=== PATIENT | female | born 1980 | race Caucasian/White ===

== ENCOUNTER 2018-12-16 20:46 | Emergency (ER) | payer OTHER ==
[2018-12-16 21:17] VITALS: BP 148/93
[2018-12-16] MEDS ORDERED: Cephalexin CAP* 500 MG PO ONE (22:01)
--- NOTE | 2018-12-16 22:11 | UC ---
Skin Complaint HPI - HPI Summary HPI Summary: Patient is a 38yo female presenting with redness and complaint of possible skin infection of left forearm following what she believes to be an insect bite two days ago. She did not see an insect but reports feeling a sudden intense stinging on her forearm. She was seen at [facility] where they told her to keep an eye on it. Over the past few days it has continued to burn and itch. There was initially no redness but this morning she noticed some erythema that has slowly spread throughout the day. [place] told her to come here for possible cellulitis. She has not taken anything for her symptoms. She denies any allergies to medications or insects. She denies any associated pain. Denies any discharge from the site. - History of Current Complaint Chief Complaint: UCSkin Time Seen by Provider: 12/16/18 21:51 Stated Complaint: INSECT BITE Hx Obtained From: Patient Hx Last Menstrual Period: 12/06/2018 Onset/Duration: Gradual Onset Skin Exposure Onset/Duration: Days Ago Onset Severity: Moderate Current Severity: None Pain Intensity: 0 Pain Scale Used: 0-10 Numeric - Allergy/Home Medications Allergies/Adverse Reactions: Allergies Allergy/AdvReac Type Severity Reaction Status Date / Time No Known Allergies Allergy Verified 12/16/18 21:10 PMH/Surg Hx/FS Hx/Imm Hx - Surgical History Surgical History: Yes Surgery Procedure, Year, and Place: lasix surgery - Family History Known Family History: Positive: Non-Contributory - Social History Alcohol Use: Occasionally Substance Use Type: None Smoking Status (MU): Light Every Day Tobacco Smoker Review of Systems All Other Systems Reviewed And Are Negative: No Constitutional: Positive: Negative. Negative: Fever, Chills, Fatigue Skin: Positive: Rash - erythematous. Negative: Bruising Respiratory: Positive: Negative Cardiovascular: Positive: Negative Gastrointestinal: Negative: Abdominal Pain, Vomiting, Diarrhea, Nausea Motor: Positive: Negative Neurovascular: Positive: Negative Musculoskeletal: Positive: Negative Neurological: Positive: Negative. Negative: Headache, Paresthesia, Numbness Physical Exam Triage Information Reviewed: Yes Appearance: Well-Appearing, No Pain Distress, Well-Nourished Vital Signs: Initial Vital Signs Temp 98.0 F 12/16/18 21:10 Pulse 71 12/16/18 21:10 Resp 18 12/16/18 21:10 BP 148/93 12/16/18 21:10 Pulse Ox 99 12/16/18 21:10 Vital Signs Reviewed: Yes Musculoskeletal Exam: Normal Neurological Exam: Normal Skin: Positive: Other - erythema and warmth to touch noted on posterior aspect of forearm. no discharge noted from site. no pain associated with palpation Course/Dx - Course Course Of Treatment: Patient was directed to take Keflex as prescribed for treatment of your skin infection. She was given her first dose here. She was instructed to return or go to the emergency department if her symptoms persist or worsen. - Diagnoses Provider Diagnosis: Cellulitis Discharge ED - Sign-Out/Discharge Documenting (check all that apply): Patient Departure All imaging exams completed and their final reports reviewed: No Studies - Discharge Plan Condition: Stable Disposition: HOME Prescriptions: Cephalexin CAP* [Keflex CAP*] 500 mg PO TID #29 cap Patient Education Materials: Cellulitis (ED) Referrals: No Primary Care Phys,NOPCP [Primary Care Provider] - Additional Instructions: Take Keflex as prescribed for treatment of your skin infection. Please return or go to the emergency department if your symptoms persist or worsen. - Billing Disposition and Condition Condition: STABLE Disposition: Home
== END 2018-12-16 22:17 | disposition home or self-care (01) ==
LOC: UCEAST 20:46
DX: L03.114 Cellulitis of left upper limb (principal); F17.210 Nicotine dependence, cigarettes, uncomplicated
CPT/HCPCS: 99202; A9270-GY; G0463

== ENCOUNTER 2019-04-26 20:01 | Observation (INO) | payer OTHER ==
[2019-04-26] MEDS ORDERED: NS 0.9% 1000 ML** 1,000 ML IV ONE (21:05)
--- NOTE | 2019-04-26 21:15 | ED ---
Abdominal Pain/Female - HPI Summary HPI Summary: Patient complains of left upper quadrant pain starting 2 days ago now radiating to mid abdomen and right lower quadrant. Intense severe pain 2 days ago with nausea or vomiting. Less pain yesterday and today, with no associated nausea or vomiting or diarrhea. Pain currently rated 4/10 with palpation. No pain when sitting at rest. Patient eating and drinking normally yesterday and today. Denies fever, cough, sore throat, CP, SOB, change in urine, change in BM , vaginal symptoms. LMP 1 month ago. Patient sent from [facility] to ED for further evaluation of right lower quadrant pain. Medical history is none. Abdominal surgical history is none. Positive smoker. - History of Current Complaint Chief Complaint: EDAbdPain Stated Complaint: ABDOMINAL PAIN PER PT Time Seen by Provider: 04/26/19 21:03 Hx Obtained From: Patient Hx Last Menstrual Period: 12/06/2018 Onset/Duration: Sudden Onset, Lasting Days Timing: Days Severity Initially: Severe Severity Currently: None Pain Intensity: 0 Pain Scale Used: 0-10 Numeric Location: Discrete At: RLQ, Discrete At: LUQ, Umbilical Radiates: No Aggravating Factor(s): Nothing Alleviating Factor(s): Nothing Associated Signs and Symptoms: Positive: Nausea, Vomiting Allergies/Adverse Reactions: Allergies Allergy/AdvReac Type Severity Reaction Status Date / Time No Known Allergies Allergy Verified 12/16/18 21:10 Home Medications: Home Medications NK [No Home Medications Reported] 04/26/19 [History Confirmed 04/26/19] PMH/Surg Hx/FS Hx/Imm Hx Endocrine/Hematology History: Denies: Hx Anticoagulant Therapy Cardiovascular History: Denies: Hx Pacemaker/ICD History: Denies: Hx Dialysis Sensory History: Denies: Hx Eye Prosthesis Opthamlomology History: Denies: Hx Legally Blind EENT History: Denies: Hx Deafness Neurological History: Denies: Hx Dementia - Surgical History Surgery Procedure, Year, and Place: lasix surgery Infectious Disease History: No Infectious Disease History: Reports: Traveled Outside the in Last 30 Days - [place], [place], [facility] and [place]. - Family History Known Family History: Positive: Non-Contributory - Social History Alcohol Use: Occasionally Substance Use Type: Reports: None Smoking Status (MU): Light Every Day Tobacco Smoker Review of Systems Constitutional: Negative Eyes: Negative ENT: Negative Cardiovascular: Negative Respiratory: Negative Positive: Abdominal Pain, Vomiting, Nausea Genitourinary: Negative Musculoskeletal: Negative Skin: Negative Neurological: Negative Psychological: Normal All Other Systems Reviewed And Are Negative: Yes Physical Exam - Summary Physical Exam Summary: Positive Robles's. Moderate suprapubic pain. Abdominal exam otherwise unremarkable. Triage Information Reviewed: Yes Vital Signs On Initial Exam: Initial Vitals Temp Pulse Resp BP Pulse Ox 98 F 86 18 149/101 99 04/26/19 20:06 04/26/19 20:06 04/26/19 20:06 04/26/19 20:06 04/26/19 20:06 Vital Signs Reviewed: Yes Appearance: Positive: Well-Appearing Skin: Positive: Warm Head/Face: Positive: Normal Head/Face Inspection Eyes: Positive: Normal Neck: Positive: Supple Respiratory/Lung Sounds: Positive: Clear to Auscultation Cardiovascular: Positive: Normal Abdomen Description: Positive: Other: Musculoskeletal: Positive: Normal Neurological: Positive: Normal Psychiatric: Positive: Normal AVPU Assessment: Alert - Wendy Coma Scale Best Eye Response: 4 - Spontaneous Best Motor Response: 6 - Obeys Commands Best Verbal Response: 5 - Oriented Coma Scale Total: 15 Procedures - Sedation Patient Received Moderate/Deep Sedation with Procedure: No Diagnostics - Vital Signs Vital Signs Temp Pulse Resp BP Pulse Ox 04/26/19 20:06 98 F 86 18 149/101 99 - Laboratory Result Diagrams: 04/26/19 21:20 04/26/19 21:20 Lab Statement: Any lab studies that have been ordered have been reviewed, and results considered in the medical decision making process. Abdominal Pain Fem Course/Dx - Course Course Of Treatment: Patient complains of left upper quadrant pain starting 2 days ago now radiating to mid abdomen and right lower quadrant. Intense severe pain 2 days ago with nausea or vomiting. Less pain yesterday and today, with no associated nausea or vomiting or diarrhea. Pain currently rated 4/10 with palpation. No pain when sitting at rest. Patient eating and drinking normally yesterday and today. Denies fever, cough, sore throat, CP, SOB, change in urine , change in BM, vaginal symptoms. LMP 1 month ago. Patient sent from [facility] to ED for further evaluation of right lower quadrant pain. Medical history is none. Abdominal surgical history is none. Vital signs within normal limits. Labs unremarkable. Transient transvaginal ultrasound positive for bulky uterus measured 10.4 x 6 x 8.6 cm with diffusely heterogeneous echotexture. This may be diffuse leiomyomas . There is not a well-defined mass. The endometrium is largely obscured. No fluid collection is seen. Right ovary measures 2.2 x 2.4 x 2.1 cm without mass or current ultrasound evidence for torsion. Color flown vascular waveforms are documented. Left adnexa: The left ovary could not be visualized due to bowel gas. CT abdomen and pelvis with IV current chest only positive for enlarged and thick-walled appendix measuring up to 10 mm in diameter with limited surrounding inflammatory change consistent with appendicitis. No abscess or obstruction. Enlarged uterus with multiple large fibroids including 9 cm fibroid at the fundus, 7 cm fibroid lower uterine segment, and at pedunculated 6 cm fibroid at the uterine fundus. Patient admitted to surgery Dr. Roberson - Diagnoses Provider Diagnoses: Appendicitis, Fibroids Discharge ED - Sign-Out/Discharge Documenting (check all that apply): Patient Departure - Discharge Plan Condition: Stable Disposition: ADMITTED TO [facility] Referrals: URI Gardner [Primary Care Provider] - - Billing Disposition and Condition Condition: STABLE Disposition: Admitted to [facility]
[2019-04-26 21:33] LABS: ABS Eosinophils 0.1 10^3/ul (0-0.6); ABS Lymphocytes 1.5 10^3/ul (1.0-4.8); ABS Monocytes 0.4 10^3/ul (0-0.8); Eosinophil % 1.3 %; Hematocrit 41 % (35-47); Hemoglobin 14.1 g/dL (12.0-16.0); Lymphocyte % 21.8 %; Mean Corpuscular HGB Conc 34 g/dL (31-36); Mean Corpuscular Hemoglobin 32 pg (27-31); Mean Corpuscular Volume 92 fL (80-97); Mean Platelet Volume 8.6 fL (7.4-10.4); Nucleated Red Blood Cells % 0.1; Platelet Count 243 10^3/uL (150-450); Red Blood Count 4.47 10^6 /uL (3.70-4.87); Red Cell Distribution Width 13 % (10-15); White Blood Count 7.1 10^3/uL (3.5-10.8)
[2019-04-26 21:46] LABS: Urine Appearance Cloudy; Urine Bilirubin Negative (Negative); Urine Blood 1+ (Negative); Urine Color Yellow; Urine Glucose Negative (Negative); Urine Ketones Negative (Negative); Urine Nitrite Negative (Negative); Urine Protein Negative (Negative); Urine Specific Gravity 1.008 (1.010-1.030); Urine Urobilinogen Negative (Negative)
[2019-04-26 21:49] LABS: Urine Bacteria 2+ (Absent); Urine Red Blood Cell Trace(0-2/hpf) (Absent); Urine Squamous Epithelial Cell Present (Absent); Urine White Blood Cell Trace(0-5/hpf) (Absent)
[2019-04-26 22:03] LABS: ALT 19 U/L (7-52); AST 17 U/L (13-39); Albumin 4.2 g/dL (3.2-5.2); Albumin/Globulin Ratio 1.4 (1-3); Alkaline Phosphatase 87 U/L (34-104); Anion Gap 7 mmol/L (2-11); BUN/Creatinine Ratio 13.6 (8-20); Blood Urea Nitrogen 11 mg/dL (6-24); C Reactive Protein 61.97 mg/L (<8.01); CO2 Carbon Dioxide 23 mmol/L (22-32); Calcium 9.5 mg/dL (8.6-10.3); Chloride 106 mmol/L (101-111); EGFR African American 95.7 (>60); EGFR Non-African American 79.1 (>60); Glucose 103 mg/dL (70-100); Potassium 3.8 mmol/L (3.5-5.0); Sodium 136 mmol/L (135-145); Total Protein 7.2 g/dL (6.4-8.9)
[2019-04-26] MEDS ORDERED: Iohexol 300* (CONTRAST) 10 ML SDV IV ONE (22:08)
[2019-04-26 22:30] LABS: HCG Pregnancy < 0.60 mIU/mL
[2019-04-26] MEDS ORDERED: Lactated Ringers 1000 ML Bag* 1,000 ML IV SCH (23:00)
[2019-04-26] MEDS ORDERED: Ketorolac INJ* 15 MG/ML 1 ML VIAL IV PUSH PRN (23:31)
[2019-04-27] MEDS: ceFOXitin 2 GM IVPREMIX* 2 GM/50 ML BAG IVPB SCH ×3 (00:27→08:59)
[2019-04-27] MEDS ORDERED: Bupivacaine 0.25% EPI 200,000* 30 ML SDV ONE (09:13)
[2019-04-27] MEDS ORDERED: fentaNYL* 50 MCG/ML 2 ML VIAL (100 MCG VIAL) ONE (09:44)
[2019-04-27] MEDS ORDERED: Midazolam* 1 MG/ML 2 ML VIAL (2 MG) ONE (09:45)
[2019-04-27] MEDS ORDERED: Propofol* 10 MG/ML 20 ML BTL ONE (09:58)
[2019-04-27] MEDS ORDERED: Ondansetron INJ* 2 MG/ML VIAL ONE (09:58)
[2019-04-27] MEDS ORDERED: Succinylcholine* 20 MG/ML 10 ML VIAL ONE (09:58)
[2019-04-27] MEDS ORDERED: Lidocaine 2% PF * 5 ML VIAL ONE (09:58)
[2019-04-27] MEDS ORDERED: Dexamethasone IV* 4 MG/ML 1 ML (4 MG) ONE (09:58)
[2019-04-27] MEDS ORDERED: EPHEDrine (Pressors)* 50 MG/ML VIAL ONE (10:00)
[2019-04-27] MEDS ORDERED: Ketorolac INJ* 30 MG/ML 1 ML VIAL ONE (11:22)
[2019-04-27] MEDS ORDERED: Metoclopramide IV* 5 MG/ML 2 ML VIAL IV PRN (11:24)
[2019-04-27] MEDS ORDERED: HYDROcodone/ACETAMIN 5-325 MG* 1 TAB PO PRN (11:24)
[2019-04-27] MEDS ORDERED: Ketorolac INJ* 30 MG/ML 1 ML VIAL IV PRN (11:24)
[2019-04-27] MEDS ORDERED: Naloxone* 0.4 MG/ML 1 ML VIAL IV PRN (11:24)
[2019-04-27] MEDS ORDERED: PROCHLORPERAZINE INJ 5 MG/ML 2 ML VIAL IV PRN (11:24)
[2019-04-27] MEDS ORDERED: HYDROmorphone INJ1* 1 MG/ML SYRINGE ONE (11:47)
[2019-04-27] MEDS: HYDROmorphone INJ1* 1 MG/ML SYRINGE IV PRN ×2 (11:48→13:25)
[2019-04-27 14:37] VITALS: BP 133/82
--- NOTE | 2019-04-27 16:10 | DS ---
Admitted: 04/26/2019 Discharged: 04/27/2019 Admission diagnosis: Appendicitis Discharge diagnosis: Appendicitis Condition at discharge: Stable PEX: General: Alert, in NAD or discomfort Integumentary: No rashes or jaundice HEENT: Oropharynx clear Heart: RRR, no MRG Lungs: CTAB, no WRR ABD: Soft, nondistended. Mildly tender around incisions, which are C/D/I with no erythema or warmth. Extremities: Calves soft and nontender. Distal pulses intact bilaterally. No edema. Procedure performed: Appendectomy Pertinent labs: Unremarkable Hospital Course: Presented to ED on 04/26/2019 for ABD pain, CT showed appendicitis and fibroids. Admitted on 04/26/2019 to surgical service. The following day, she underwent an appendectomy. Procedure was tolerated well and she was discharged home in stable condition. Discharge instructions provided to pt regarding diet, meds, activity, and post op follow up. All questions were answered. Discharged home in stable condition on 04/27/2019.
--- NOTE | 2019-04-30 01:39 | OP ---
CC: [facility] * DATE OF OPERATION: 04/26/19 - ROOM #331 DATE OF : 82 SURGEON: Guille Roberson MD BOAT WRAPPER: None. ANESTHESIOLOGIST: Dr. Verdugo. ANESTHESIA: General endotracheal. PRE-OP DIAGNOSIS: Acute appendicitis. POST-OP DIAGNOSIS: Acute appendicitis. OPERATIVE PROCEDURE: Laparoscopic appendectomy. ESTIMATED BLOOD LOSS: Minimal. IV FLUIDS: Crystalloids. SPECIMENS: Appendix. DRAINS: None. COMPLICATIONS: None. COUNT: Instrument, needle, and sponge count correct. DESCRIPTION OF PROCEDURE: The patient was brought to the operating room and placed on the table supine. Sequential compression devices were placed on both lower extremities. General anesthesia was administered. The abdomen was prepped and draped in the usual sterile fashion and a time-out was performed. Local anesthetic was infiltrated into the skin and soft tissue prior to making each incision. A transumbilical vertical incision was created and an open technique was used to access the peritoneal cavity after which a 12 mm trocar was placed and carbon dioxide was insufflated to a pressure of 15 mmHg. Under direct visualization, 5 mm trocar was placed in the suprapubic midline and 12 mm trocar placed in the left upper quadrant. The appendix was identified in the right lower quadrant and appeared to have suppurative changes. There was significant inflammation of the mesentery. Appendix was elevated, a window created in the mesentery of the appendix at the base, the appendix was divided from the cecum with the EndoGIA stapler with a barton cartridge. The mesentery of the appendix was divided with the EndoGIA stapler with molina cartridge. The appendix was placed in an endoscopic retrieval bag and retrieved through the umbilical site. The appendix had to be retrieved piecemeal due to the large amount of inflammation in the mesentery that made it difficult to remove it. Once the specimen was removed, hemostasis was assured. Ports removed under direct visualization. Carbon dioxide was released. The umbilical wound was closed with 0 Vicryl in a [id number] fashion to approximate the fascia. The skin incisions were closed with 4-0 Monocryl in a subcuticular fashion and DermaFlex was applied. The patient tolerated the procedure well. She was extubated uneventfully and transferred to the recovery room in stable condition. [id number]/[facility] #: [id number] [facility]
== END 2019-04-27 15:00 | disposition home or self-care (01) ==
LOC: ED 20:01 → SSU 23:31
PROVIDERS: ADMIT Surgery; ATTEND Surgery
DX: K35.80 Unspecified acute appendicitis (principal); R10.12 Left upper quadrant pain; R11.2 Nausea with vomiting, unspecified; F17.210 Nicotine dependence, cigarettes, uncomplicated
CPT/HCPCS: 36415; 74177; 76830; 80053; 81003; 81015; 83605; 83690; 84702; 85025; 86140; 87086; 88304; 96374; 96375; 96376; 99284; C1776; G0378; G0379; J0330; J0694; J1100; J1170; J1885; J2250; J2405; J2704; J3010; Q9967